=== PATIENT | female | born 1935 | race Caucasian/White ===

== ENCOUNTER 2020-11-10 17:01 | Emergency (ER) | payer MEDICARE, OTHER ==
[~2020-11-10 17:01] MED LIST: FLEXERIL 10 MG10 MG PO; LEVAQUIN500 MG PO; NORCO 5-325 TA1 EACH PO; PYRIDIUM200 MG PO
[2020-11-10] MEDS ORDERED: PYRIDIUM100 MG PO (18:30)
[2020-11-10] MEDS ORDERED: CEPHALEXIN500 M1 PO (18:30)
== END 2020-11-10 18:56 | disposition home or self-care (01) ==
LOC: ER1 17:01
DX: N30.00 Acute cystitis without hematuria (principal); E11.9 Type 2 diabetes mellitus without complications; I10 Essential (primary) hypertension; Z88.8 Allergy status to other drugs, medicaments and biological substances; Z90.710 Acquired absence of both cervix and uterus
CPT/HCPCS: 81001; 99283

== ENCOUNTER → 2021-02-12 | Outpatient (CLI) | payer MEDICARE, OTHER ==
[~2021-02-12] MED LIST changes: +CEPHALEXIN500 M1 PO; +PYRIDIUM100 MG PO
== END ==
LOC: LBRF 16:01
DX: R30.0 Dysuria (principal)
CPT/HCPCS: 87077; 87086; 87186

== ENCOUNTER 2021-02-17 20:30 | Emergency (ER) | payer MEDICARE, OTHER ==
[2021-02-18 00:07] LABS: HEMOGLOBIN 11.1 gm/dl (12.3-15.3); RED BLOOD COUNT 3.53 M/UL (4.00-5.10); WHITE BLOOD COUNT 8.2 K/UL (4.5-11.0)
[2021-02-18 00:29] LABS: BUN/CREATININE RATIO 21 (0-10)
[2021-02-18] MEDS ORDERED: HYDRALAZINE HCL50 MG PO ×2 (01:19→02:13)
== END 2021-02-18 02:15 | disposition home or self-care (01) ==
LOC: ER1 20:30
PROVIDERS: Emergency Medicine
DX: I10 Essential (primary) hypertension (principal)
CPT/HCPCS: 71045; 80053; 81001; 82550; 82553; 83874; 83880; 84439; 84443; 84484; 85025; 85379; 87086; 96374; 99283; J1940

== ENCOUNTER 2021-02-22 07:41 | Emergency (ER) | payer MEDICARE, OTHER ==
[~2021-02-22 07:41] MED LIST changes: +HYDRALAZINE HCL50 MG PO
[2021-02-22 08:54] LABS: HEMOGLOBIN 11.8 gm/dl (12.3-15.3); RED BLOOD COUNT 3.76 M/UL (4.00-5.10); WHITE BLOOD COUNT 13.7 K/UL (4.5-11.0)
[2021-02-22 09:13] LABS: BUN/CREATININE RATIO 18 (0-10)
[2021-02-22] MEDS ORDERED: ZOFRAN4 MG PO (12:45)
[2021-02-22] MEDS ORDERED: PROBIOTIC & AC1 EACH PO (13:08)
== END 2021-02-22 14:00 | disposition home or self-care (01) ==
LOC: ER1 07:41
PROVIDERS: Physician Assistant
DX: R19.7 Diarrhea, unspecified (principal); R11.0 Nausea; Z20.822 Contact with and (suspected) exposure to COVID-19; E11.9 Type 2 diabetes mellitus without complications; I10 Essential (primary) hypertension; Z79.4 Long term (current) use of insulin; Z88.8 Allergy status to other drugs, medicaments and biological substances; Z90.710 Acquired absence of both cervix and uterus
CPT/HCPCS: 70450; 71045; 71275; 74175; 80053; 81001; 82550; 82553; 83605; 83615; 83690; 83874; 83880; 84484; 85025; 85379; 86140; 87040; 87086; 96374; 96375; 99284; J2270; J2405; J7030; Q9967; U0002

== ENCOUNTER 2021-02-28 16:09 | Emergency (ER) | payer MEDICARE, OTHER ==
[~2021-02-28 16:09] MED LIST changes: +PROBIOTIC & AC1 EACH PO; +ZOFRAN4 MG PO
[2021-02-28 19:26] LABS: RED BLOOD COUNT 3.21 M/UL (4.00-5.10); WHITE BLOOD COUNT 13.1 K/UL (4.5-11.0)
[2021-02-28 19:34] LABS: BORDETELLA PARAPERTUSSIS Not Detected (Not Detectd); BORDETELLA PERTUSSIS Not Detected (Not Detectd); CHLAMYDIA PNEUMONIAE Not Detected (Not Detectd); CORONAVIRUS HKU1 Not Detected (Not Detectd); CORONAVIRUS NL63 Not Detected (Not Detectd); CORONAVIRUS OC43 Not Detected (Not Detectd); CORONOAVIRUS 229E Not Detected (Not Detectd); HUMAN METAPNEUMOVIRUS Not Detected (Not Detectd); HUMAN RHINOVIRUS/ENTEROVIRUS Not Detected (Not Detectd); INFLUENZA A Not Detected (Not Detectd); INFLUENZA B Not Detected (Not Detectd); MYCOPLASMA PNEUMONIAE Not Detected (Not Detectd); PARAINFLUENZA VIRUS 1 Not Detected (Not Detectd); PARAINFLUENZA VIRUS 2 Not Detected (Not Detectd); PARAINFLUENZA VIRUS 3 Not Detected (Not Detectd); PARAINFLUENZA VIRUS 4 Not Detected (Not Detectd); RESPIRATORY SYNCYTIAL VIRUS Not Detected (Not Detectd)
[2021-02-28 20:33] LABS: SARS-CoV-2 NOT DETECTED (Not Detectd)
[2021-02-28] MEDS ORDERED: CARAFATE1 GM/10 ML PO (21:25)
[2021-02-28] MEDS ORDERED: PROTONIX40 MG PO (21:25)
== END 2021-02-28 22:00 | disposition home or self-care (01) ==
LOC: ER1 16:09
PROVIDERS: Preventive Medicine Occupational Medicine
DX: K52.9 Noninfective gastroenteritis and colitis, unspecified (principal); I10 Essential (primary) hypertension; E11.9 Type 2 diabetes mellitus without complications; Z20.822 Contact with and (suspected) exposure to COVID-19
CPT/HCPCS: 71045; 80053; 81001; 82009; 82140; 82550; 82553; 82803; 83690; 83874; 83880; 84484; 85025; 85652; 86140; 87086; 87633; 96374; 96375; 99284; C9113; J2405

== ENCOUNTER 2021-03-19 14:38 | Observation (INO) | payer MEDICARE, OTHER ==
[~2021-03-19] VITALS: Ht 160 cm; Wt 73.9 kg
[~2021-03-19 14:38] MED LIST changes: +CARAFATE1 GM/10 ML PO; +PROTONIX40 MG PO
[2021-03-19 16:26] LABS: HEMOGLOBIN 10.7 gm/dl (12.3-15.3); RED BLOOD COUNT 3.47 M/UL (4.00-5.10); WHITE BLOOD COUNT 8.7 K/UL (4.5-11.0)
[2021-03-20] MEDS ORDERED: ESCITALOPRAM OX10 MG PO (00:27)
[2021-03-20] MEDS ORDERED: LOSARTAN POTAS100 MG PO (00:27)
[2021-03-20] MEDS ORDERED: LEVOTHYROXINE25 MCG PO (00:28)
[2021-03-20] MEDS ORDERED: ACETAMINOPHEN-1 EAC1 PO (00:28)
[2021-03-20] MEDS ORDERED: TRULICITY0.75 MG/0. SQ (00:29)
[2021-03-20] MEDS ORDERED: VITAMIN D21250 MCG PO (00:30)
[2021-03-21] MEDS ORDERED: HYDRALAZINE HCL50 MG PO (10:18)
== END 2021-03-21 20:56 | disposition home or self-care (01) ==
LOC: ER1 14:38 → CDU 20:14 → M/S 03-20 00:34
PROVIDERS: Nurse Practitioner; ADMIT Family Medicine
DX: E87.1 Hypo-osmolality and hyponatremia (principal); E86.0 Dehydration; F32.9 Major depressive disorder, single episode, unspecified; E11.36 Type 2 diabetes mellitus with diabetic cataract; H26.9 Unspecified cataract; I10 Essential (primary) hypertension; I25.2 Old myocardial infarction; M19.90 Unspecified osteoarthritis, unspecified site; Z20.822 Contact with and (suspected) exposure to COVID-19; Z85.42 Personal history of malignant neoplasm of other parts of uterus; Z90.710 Acquired absence of both cervix and uterus; Z96.651 Presence of right artificial knee joint; Z88.8 Allergy status to other drugs, medicaments and biological substances; Z79.899 Other long term (current) drug therapy; Z79.891 Long term (current) use of opiate analgesic
CPT/HCPCS: 36415; 71045; 80048; 80053; 81001; 82962; 83880; 85025; 85610; 87040; 93005; 96372; 99284; G0378; J0360; J1650; U0002

== ENCOUNTER 2021-05-29 14:19 | Emergency (ER) | payer MEDICARE, OTHER ==
[~2021-05-29 14:19] MED LIST changes: +ACETAMINOPHEN-1 EAC1 PO; +ESCITALOPRAM OX10 MG PO; +LEVOTHYROXINE25 MCG PO; +LOSARTAN POTAS100 MG PO; +TRULICITY0.75 MG/0. SQ; +VITAMIN D21250 MCG PO
[2021-05-29 15:19] LABS: HEMOGLOBIN 11.9 gm/dl (12.3-15.3); RED BLOOD COUNT 3.89 M/UL (4.00-5.10); WHITE BLOOD COUNT 8.4 K/UL (4.5-11.0)
[2021-05-29 16:01] LABS: BUN/CREATININE RATIO 16 (0-10)
== END 2021-05-29 23:00 | disposition home or self-care (01) ==
LOC: ER1 14:19
PROVIDERS: Physician Assistant
DX: I10 Essential (primary) hypertension (principal); R53.81 Other malaise; R51.9 Headache, unspecified; Z20.822 Contact with and (suspected) exposure to COVID-19
CPT/HCPCS: 0240U; 70450; 71045; 80053; 81001; 82550; 82553; 82962; 83874; 84484; 85025; 93005; 96374; 96375; 99284; J0360; J2405

== ENCOUNTER → 2021-07-30 | Outpatient (CLI) | payer MEDICARE, OTHER | LOC: US 10:00 | DX: N18.32 Chronic kidney disease, stage 3b (principal) ==

== ENCOUNTER → 2021-11-24 | Outpatient (CLI) | payer MEDICARE, OTHER | LOC: CT 13:06 | DX: R10.32 Left lower quadrant pain (principal); K57.32 Diverticulitis of large intestine without perforation or abscess without bleeding; K42.9 Umbilical hernia without obstruction or gangrene; R11.0 Nausea; E11.22 Type 2 diabetes mellitus with diabetic chronic kidney disease; N18.30 Chronic kidney disease, stage 3 unspecified; C55 Malignant neoplasm of uterus, part unspecified; R91.1 Solitary pulmonary nodule; K76.0 Fatty (change of) liver, not elsewhere classified; Z90.710 Acquired absence of both cervix and uterus; M47.816 Spondylosis without myelopathy or radiculopathy, lumbar region; M48.061 Spinal stenosis, lumbar region without neurogenic claudication | CPT/HCPCS: 36415; 82565; 84520; Q9967 ==